=== PATIENT | female | born 1955 | race Caucasian/White ===

== ENCOUNTER → 2020-11-27 | Outpatient (CLI) | payer MEDICARE, OTHER ==
[~2020-11-27] MED LIST: AMBIEN10 MG PO; ARNUITY ELLIP200 MCG INH; BENAZEPRIL-HCT1 EACH PO; CEFUROXIME500 MG PO; CELEBREX 100MG100 MG PO; ELIQUIS 2.5 MG2.5 MG PO; LEXAPRO5 MG PO; LOTENSIN10 MG PO; MACROBID 100 M100 MG PO; MICROZIDE12.5 MG PO; NORCO 5-325 TA1 EACH PO; PERCOCET 5-3251 EACH PO; PROVENTIL HFA6.7 GM INH; REXULTI 1 MG PO; SINGULAIR10 MG PO; VITAMIN D325 MC1 PO
[2020-11-27 10:25] LABS: HEMOGLOBIN 15.4 gm/dl (12.3-15.3); RED BLOOD COUNT 5.47 M/UL (4.00-5.10); WHITE BLOOD COUNT 11.9 K/UL (4.5-11.0)
[2020-11-28 19:12] LABS: CHOLESTEROL, TOTAL 175 mg/dL (100-199); HDL SIZE 9.3 nm (>=9.2); HDL-C 41 mg/dL (>39); HDL-P (TOTAL) 23.1 umol/L (>=30.5); LARGE HDL-P 4.8 umol/L (>=4.8); LARGE VLDL-P 2.9 nmol/L (<=2.7); LDL SIZE 21.8 nm (>20.5); LDL SIZE 21.8 nm (>=20.8); LDL-C 118 mg/dL (0-99); LDL-P 1152 nmol/L (<1000); LP-IR SCORE 39 (<=45); SMALL LDL-P 200 nmol/L (<=527); TRIGLYCERIDES 88 mg/dL (0-149); VLDL SIZE 45.4 nm (<=46.6)
== END ==
LOC: LAB 09:41
PROVIDERS: Emergency Medicine
DX: M13.861 Other specified arthritis, right knee (principal); R60.0 Localized edema; I10 Essential (primary) hypertension; N30.00 Acute cystitis without hematuria; E55.9 Vitamin D deficiency, unspecified; R94.6 Abnormal results of thyroid function studies
CPT/HCPCS: 36415; 80053; 80061; 83704; 84443; 84550; 85025

== ENCOUNTER → 2021-06-04 | Outpatient (CLI) | payer MEDICARE, OTHER ==
[2021-06-04 12:43] LABS: HEMOGLOBIN 16.1 gm/dl (12.3-15.3); RED BLOOD COUNT 5.46 M/UL (4.00-5.10); WHITE BLOOD COUNT 11.8 K/UL (4.5-11.0)
== END ==
LOC: LAB 12:24
PROVIDERS: Otolaryngology Otolaryngology/Facial Plastic Surgery
DX: K12.1 Other forms of stomatitis (principal)
CPT/HCPCS: 36415; 80053; 85025

== ENCOUNTER → 2021-06-18 | Outpatient (CLI) | payer MEDICARE, OTHER ==
[2021-06-18 09:15] LABS: HEMOGLOBIN 15.2 gm/dl (12.3-15.3); RED BLOOD COUNT 5.21 M/UL (4.00-5.10); WHITE BLOOD COUNT 10.5 K/UL (4.5-11.0)
[2021-06-18 10:00] LABS: BUN/CREATININE RATIO 16 (0-10)
[2021-06-23 20:09] LABS: 25-HYDROXY, VITAMIN D-2 7.8 ng/mL (.)
== END ==
LOC: LAB 08:12
PROVIDERS: Emergency Medicine
DX: I10 Essential (primary) hypertension (principal); R53.83 Other fatigue; E55.9 Vitamin D deficiency, unspecified
CPT/HCPCS: 36415; 80048; 82306; 84443; 85025

== ENCOUNTER → 2021-09-10 | Outpatient (CLI) | payer MEDICARE, OTHER ==
[2021-09-10 10:20] LABS: HEMOGLOBIN 15.9 gm/dl (12.3-15.3); RED BLOOD COUNT 5.43 M/UL (4.00-5.10); WHITE BLOOD COUNT 11.5 K/UL (4.5-11.0)
[2021-09-11 08:14] LABS: A/G RATIO 1.2 (1.2-2.2); ALKALINE PHOSPHATASE, S 92 IU/L (44-121); ALT (SGPT) 18 IU/L (0-32); AST (SGOT) 17 IU/L (0-40); BILIRUBIN, TOTAL 0.4 mg/dL (0.0-1.2); BUN 16 mg/dL (8-27); BUN/CREATININE RATIO 16 (12-28); CALCIUM, SERUM 9.5 mg/dL (8.7-10.3); CARBON DIOXIDE, TOTAL 23 mmol/L (20-29); CHLORIDE, SERUM 100 mmol/L (96-106); CREATININE, SERUM 1.01 mg/dL (0.57-1.00); EGFR IF AFRICN AM 67 (>59); EGFR IF NONAFRICN AM 58 (>59); GLOBULIN, TOTAL 3.1 g/dL (1.5-4.5); GLUCOSE, SERUM 120 mg/dL (65-99); POTASSIUM, SERUM 4.6 mmol/L (3.5-5.2); PROTEIN, TOTAL, SERUM 6.9 g/dL (6.0-8.5); SODIUM, SERUM 138 mmol/L (134-144)
[2021-09-11 13:15] LABS: C-REACTIVE PROTEIN, QUANT 17 mg/L (0-10); RHEUMATOID ARTHRITIS FACTOR <10.0 IU/mL (<14.0)
== END ==
LOC: LAB 09:50
PROVIDERS: Emergency Medicine
DX: I10 Essential (primary) hypertension (principal); K14.9 Disease of tongue, unspecified; K21.9 Gastro-esophageal reflux disease without esophagitis; F41.1 Generalized anxiety disorder; M15.8 Other polyosteoarthritis; K12.1 Other forms of stomatitis
CPT/HCPCS: 36415; 80053; 84443; 84550; 85025; 86038; 86140; 86431; 87206

== ENCOUNTER → 2021-10-22 | Outpatient (CLI) | payer MEDICARE, OTHER ==
[2021-10-22 07:49] LABS: HEMOGLOBIN 15.7 gm/dl (12.3-15.3); RED BLOOD COUNT 5.53 M/UL (4.00-5.10); WHITE BLOOD COUNT 16.8 K/UL (4.5-11.0)
== END ==
LOC: LAB 07:11
PROVIDERS: Emergency Medicine
DX: B37.0 Candidal stomatitis (principal); K14.9 Disease of tongue, unspecified; I10 Essential (primary) hypertension; K21.9 Gastro-esophageal reflux disease without esophagitis; F41.1 Generalized anxiety disorder; E55.9 Vitamin D deficiency, unspecified; R53.83 Other fatigue; M15.8 Other polyosteoarthritis
CPT/HCPCS: 36415; 80053; 84443; 84630; 85025; 85652; 86140

== ENCOUNTER 2021-11-21 19:29 | Emergency (ER) | payer MEDICARE, OTHER ==
[2021-11-21 20:02] LABS: HEMOGLOBIN 14.7 gm/dl (12.3-15.3); RED BLOOD COUNT 5.08 M/UL (4.00-5.10); WHITE BLOOD COUNT 13.4 K/UL (4.5-11.0)
[2021-11-21] MEDS ORDERED: MOTION SICKNESS25 MG PO (23:16)
[2021-11-21] MEDS ORDERED: ONDANSETRON ODT4 MG SL (23:16)
== END 2021-11-21 23:35 | disposition home or self-care (01) ==
LOC: ER1 19:29
PROVIDERS: Student in an Organized Health Care Education/Training Program
DX: I10 Essential (primary) hypertension (principal); R42 Dizziness and giddiness; R11.2 Nausea with vomiting, unspecified; J45.909 Unspecified asthma, uncomplicated; Z88.6 Allergy status to analgesic agent
CPT/HCPCS: 70450; 71045; 80053; 81001; 82550; 82553; 84484; 85025; 87086; 93005; 99284

== ENCOUNTER 2022-03-29 14:32 | Emergency (ER) | payer MEDICARE, OTHER ==
[~2022-03-29 14:32] MED LIST changes: +MOTION SICKNESS25 MG PO; +ONDANSETRON ODT4 MG SL
[2022-03-29 15:04] LABS: HEMOGLOBIN 16.2 gm/dl (12.3-15.3); RED BLOOD COUNT 5.53 M/UL (4.00-5.10); WHITE BLOOD COUNT 16.3 K/UL (4.5-11.0)
[2022-03-29 16:34] LABS: BUN/CREATININE RATIO 16 (0-10)
== END 2022-03-29 19:45 | disposition home or self-care (01) ==
LOC: ER1 14:32
PROVIDERS: Physician Assistant
DX: R06.02 Shortness of breath (principal); D72.829 Elevated white blood cell count, unspecified; I10 Essential (primary) hypertension
CPT/HCPCS: 80053; 81001; 82550; 82553; 83880; 84484; 85025; 93005; 99285; Q9967

== ENCOUNTER → 2022-04-20 | Outpatient (CLI) | payer MEDICARE, OTHER | LOC: ECHO 11:15 | DX: I50.32 Chronic diastolic (congestive) heart failure (principal); I27.20 Pulmonary hypertension, unspecified; I08.1 Rheumatic disorders of both mitral and tricuspid valves | CPT/HCPCS: ECHO; 93306 ==

== ENCOUNTER 2022-04-27 18:23 | Emergency (ER) | payer MEDICARE, OTHER ==
[2022-04-27 19:13] LABS: HEMOGLOBIN 16.7 gm/dl (12.3-15.3); RED BLOOD COUNT 5.64 M/UL (4.00-5.10); WHITE BLOOD COUNT 17.6 K/UL (4.5-11.0)
[2022-04-28 12:47] LABS: BUN/CREATININE RATIO 28 (0-10)
[2022-04-28 14:39] LABS: HEMOGLOBIN 15.7 gm/dl (12.3-15.3); RED BLOOD COUNT 5.31 M/UL (4.00-5.10); WHITE BLOOD COUNT 17.5 K/UL (4.5-11.0)
== END 2022-04-28 19:31 | disposition short-term general hospital (02) ==
LOC: ER1 18:23
PROVIDERS: Emergency Medicine; Physician Assistant
DX: N13.2 Hydronephrosis with renal and ureteral calculous obstruction (principal); N12 Tubulo-interstitial nephritis, not specified as acute or chronic; I10 Essential (primary) hypertension; R40.2410 Glasgow coma scale score 13-15, unspecified time; Z96.651 Presence of right artificial knee joint; Z88.6 Allergy status to analgesic agent; Z90.710 Acquired absence of both cervix and uterus
CPT/HCPCS: 80053; 81001; 82150; 82550; 82553; 83605; 83690; 84484; 85025; 87040; 87077; 87086; 87186; 93005; 96361; 96365; 96375; 96376; 99285; J0696; J1170; J2405; J2550

== ENCOUNTER 2022-05-06 13:06 | Emergency (ER) | payer MEDICARE, OTHER ==
[2022-05-06 13:59] LABS: RED BLOOD COUNT 5.51 M/UL (4.00-5.10); WHITE BLOOD COUNT 17.3 K/UL (4.5-11.0)
== END 2022-05-06 13:23 | disposition left against medical advice (07) ==
LOC: ER1 13:06
PROVIDERS: Emergency Medicine
DX: R39.89 Other symptoms and signs involving the genitourinary system (principal)
CPT/HCPCS: 80053; 81001; 85025; 99281